=== PATIENT | female | born 1955 | race Caucasian/White ===

== ENCOUNTER 2016-07-25 09:20 | Emergency (ER) | payer MEDICARE, BC | END 2016-07-25 12:05 | disposition home or self-care (01) | LOC: D.ER 09:20 | DX: J01.90 Acute sinusitis, unspecified (principal); F41.9 Anxiety disorder, unspecified; J44.9 Chronic obstructive pulmonary disease, unspecified; I10 Essential (primary) hypertension; F17.200 Nicotine dependence, unspecified, uncomplicated ==

== ENCOUNTER 2018-01-26 08:56 | Emergency (ER) | payer MEDICARE, MEDICAID ==
[~2018-01-26] VITALS: Ht 162.6 cm; Wt 113.6 kg
[2018-01-26 08:59] VITALS: Ht 162.6 cm; Wt 113.6 kg
[2018-01-26] MEDS ORDERED: ZESTRIL20 MG PO (09:03)
[2018-01-26] MEDS ORDERED: NEURONTIN600 MG PO (09:03)
[2018-01-26] MEDS ORDERED: TRAZODONE HCL150 MG PO (09:04)
[2018-01-26] MEDS ORDERED: LEVAQUIN500 MG PO (09:45)
[2018-01-26] MEDS ORDERED: MUCINEX600 MG PO (09:45)
[2018-01-26] MEDS ORDERED: PROAIR HFA8.5 GM INH (09:45)
[2018-01-26 10:03] LABS: BASOPHILS 0.6 % (0-2); HEMATOCRIT 42.7 % (36.0-48.0); HEMOGLOBIN 14.9 g/dL (12-16); IMMATURE GRANULOCYTES 0.6 % (0-5); LYMPHOCYTES 33.4 % (15-50); MCH 31.2 pg (26.0-34.0); MCHC 34.9 g/dL (31.0-37.0); MCV 89.5 fL (80.0-100.0); MEAN PLATELET VOLUME 10.6 fL (7.4-10.4); MONOCYTES 4.6 % (2-11); NEUTROPHILS 57.8 % (40-80); PLATELET COUNT 134 10x3/uL (130-400); RBC 4.77 10x6/uL (4.00-5.40); RDW 12.5 % (11.5-14.5); WBC 6.7 10x3/uL (4.8-10.8)
[2018-01-26 10:04] LABS: ALBUMIN 3.3 g/dL (3.4-5.0); ANION GAP 13.5 mmol/L (8-16); BILIRUBIN - TOTAL 0.65 mg/dL (0.2-1.3); CARBON DIOXIDE 25.5 mmol/L (21.0-32.0); CREATININE - SERUM 1.3 mg/dL (0.6-1.3); PROTEIN - SERUM 8.7 g/dL (6.4-8.2)
[2018-01-26] MEDS ORDERED: PRINIVIL20 MG PO (10:20)
[2018-01-26 10:56] VITALS: BP 142/78
== END 2018-01-26 10:58 | disposition home or self-care (01) ==
LOC: D.ER 08:56
PROVIDERS: Emergency Medicine
DX: J20.9 Acute bronchitis, unspecified (principal); R50.9 Fever, unspecified; I10 Essential (primary) hypertension; J44.9 Chronic obstructive pulmonary disease, unspecified

== ENCOUNTER 2018-02-11 18:05 | Emergency (ER) | payer MEDICARE ==
[~2018-02-11] VITALS: Ht 162.6 cm; Wt 117.7 kg
[~2018-02-11 18:05] MED LIST: LEVAQUIN500 MG PO; MUCINEX600 MG PO; NEURONTIN600 MG PO; PRINIVIL20 MG PO; PROAIR HFA8.5 GM INH; TRAZODONE HCL150 MG PO; ZESTRIL20 MG PO
[2018-02-11 18:13] VITALS: Ht 162.6 cm; Wt 117.7 kg
[2018-02-11 18:55] LABS: BASOPHILS 0.6 % (0-2); EOSINOPHILS 3.9 % (0-7); HEMATOCRIT 42.2 % (36.0-48.0); HEMOGLOBIN 14.6 g/dL (12-16); IMMATURE GRANULOCYTES 0.4 % (0-5); LYMPHOCYTES 44.4 % (15-50); MCHC 34.6 g/dL (31.0-37.0); MCV 89.6 fL (80.0-100.0); MEAN PLATELET VOLUME 10.7 fL (7.4-10.4); MONOCYTES 8.6 % (2-11); NEUTROPHILS 42.1 % (40-80); PLATELET COUNT 133 10x3/uL (130-400); RBC 4.71 10x6/uL (4.00-5.40); RDW 12.2 % (11.5-14.5); WBC 6.7 10x3/uL (4.8-10.8)
[2018-02-11 18:56] LABS: APPEARANCE CLEAR (CLEAR); BILIRUBIN NEGATIVE (NEGATIVE); COLOR YELLOW (YELLOW); GLUCOSE NEGATIVE (NEGATIVE); KETONE NEGATIVE (NEGATIVE); NITRITE NEGATIVE (NEGATIVE); PROTEIN NEGATIVE (NEGATIVE); SPECIFIC GRAVITY 1.005 (1.005-1.020); UROBILINOGEN NORMAL (NORMAL)
[2018-02-11 18:58] LABS: BACTERIA MANY /hpf (NONE SEEN); EPITHELIAL CELLS 0-5 /hpf (0-5)
[2018-02-11 19:19] LABS: ANION GAP 10.6 mmol/L (8-16); BILIRUBIN - TOTAL 0.47 mg/dL (0.2-1.3); CALCIUM 9.8 mg/dL (8.5-10.1); CARBON DIOXIDE 30.7 mmol/L (21.0-32.0); CREATININE - SERUM 1.5 mg/dL (0.6-1.3); POTASSIUM - SERUM 4.3 mmol/L (3.5-5.1)
[2018-02-11 19:22] LABS: PROTEIN - SERUM 3.4 g/dL (6.4-8.2)
[2018-02-11] MEDS ORDERED: ZOFRAN ODT4 MG/UDTAB PO ×2 (21:52→21:56)
[2018-02-11] MEDS ORDERED: MACROBID100 MG PO (21:53)
[2018-02-11 22:01] VITALS: BP 115/69
[2018-03-30 14:25] VITALS: Ht 162.6 cm; Wt 117.7 kg
== END 2018-02-11 22:20 | disposition home or self-care (01) ==
LOC: D.ER 18:05
PROVIDERS: Family Medicine
DX: N39.0 Urinary tract infection, site not specified (principal); R11.0 Nausea; I10 Essential (primary) hypertension; J44.9 Chronic obstructive pulmonary disease, unspecified; F17.200 Nicotine dependence, unspecified, uncomplicated

== ENCOUNTER 2018-03-11 10:02 | Emergency (ER) | payer MEDICARE ==
[~2018-03-11] VITALS: Ht 162.6 cm; Wt 127.3 kg
[~2018-03-11 10:02] MED LIST changes: +MACROBID100 MG PO; +ZOFRAN ODT4 MG/UDTAB PO
[2018-03-11 10:07] VITALS: Ht 162.6 cm; Wt 127.3 kg
[2018-03-11 10:28] LABS: BASOPHILS 0.6 % (0-2); EOSINOPHILS 0.9 % (0-7); HEMOGLOBIN 15.1 g/dL (12-16); IMMATURE GRANULOCYTES 0.4 % (0-5); LYMPHOCYTES 34.1 % (15-50); MCH 31.8 pg (26.0-34.0); MCHC 35.1 g/dL (31.0-37.0); MCV 90.5 fL (80.0-100.0); MEAN PLATELET VOLUME 10.8 fL (7.4-10.4); MONOCYTES 6.7 % (2-11); NEUTROPHILS 57.3 % (40-80); PLATELET COUNT 146 10x3/uL (130-400); RBC 4.75 10x6/uL (4.00-5.40); RDW 12.5 % (11.5-14.5)
[2018-03-11 10:40] LABS: ALBUMIN 3.4 g/dL (3.4-5.0); ANION GAP 11.8 mmol/L (8-16); BILIRUBIN - TOTAL 0.61 mg/dL (0.2-1.3); CALCIUM 8.8 mg/dL (8.5-10.1); CARBON DIOXIDE 25.8 mmol/L (21.0-32.0); CREATININE - SERUM 1.5 mg/dL (0.6-1.3); POTASSIUM - SERUM 4.6 mmol/L (3.5-5.1); PROTEIN - SERUM 8.6 g/dL (6.4-8.2)
[2018-03-11 11:21] LABS: APPEARANCE CLEAR (CLEAR); BILIRUBIN NEGATIVE (NEGATIVE); COLOR YELLOW (YELLOW); GLUCOSE NEGATIVE (NEGATIVE); KETONE NEGATIVE (NEGATIVE); NITRITE NEGATIVE (NEGATIVE); PROTEIN 1+ mg/dL (NEGATIVE); SPECIFIC GRAVITY 1.015 (1.005-1.020); UDS - AMPHET NEGATIVE QUAL (NEGATIVE); UDS - BARB NEGATIVE QUAL (NEGATIVE); UDS - BENZO NEGATIVE QUAL (NEGATIVE); UDS - COCAINE NEGATIVE QUAL (NEGATIVE); UDS - OPIATE POSITIVE QUAL (NEGATIVE); UDS - PCP NEGATIVE QUAL (NEGATIVE); UDS - THC POSITIVE QUAL (NEGATIVE); UROBILINOGEN NORMAL (NORMAL)
[2018-03-11 11:24] LABS: BACTERIA FEW /hpf (NONE SEEN); EPITHELIAL CELLS 0-5 /hpf (0-5); RED CELLS - URINE 0-5 /hpf (0-5); WHITE CELLS - URINE 0-5 /hpf (0-5)
[2018-03-11 15:35] VITALS: BP 138/75
[2018-03-30 14:25] VITALS: Ht 162.6 cm; Wt 127.3 kg
== END 2018-03-11 15:37 ==
LOC: D.ER 10:02
PROVIDERS: Emergency Medicine
DX: F31.64 Bipolar disorder, current episode mixed, severe, with psychotic features (principal)

== ENCOUNTER 2018-03-19 13:29 | Observation (INO) | payer MEDICARE ==
[~2018-03-19] VITALS: Ht 162.6 cm; Wt 126.0 kg
[2018-03-19] VITALS (10 sets, daily range): BP systolic 125–137; BP diastolic 76–93; BMI 47.8
--- NOTE | ~2018-03-19 | CN ---
PATIENT NAME:AMRIPOSA PADILLA MEDICAL RECORD: [id number] : 53 LOCATION:[facility].2305 ADMIT DATE: 03/19/18 ACCOUNT: [id number] CONSULTING PHYSICIAN: MIKALA PITTMAN MD REFERRING PHYSICIAN: TANJA KAUR MD DATE OF CONSULTATION: 03/20/2018 PSYCHIATRIC CONSULTATION IDENTIFYING DATA: The patient is 62 years old and she is admitted to the hospital on a voluntary basis. CHIEF COMPLAINT: Overdose. HISTORY OF PRESENT ILLNESS: The patient apparently came to the Emergency Room and told the Emergency Room doctor that she had tried to kill herself by taking 25 Haldol and 25 Ativan tablets. Apparently after being evaluated, she was found to be negative for benzodiazepines in her urine, but positive for opiates. She has no explanation for this. She says the Haldol and Ativan were prescribed to her by her psychiatrist at [facility]. She says that she did it with the full intent of killing herself. Apparently, there have been some behavioral issues with her where sometimes she appears to be malingering or pretending to be sedated when she actually is not. The nurse told me that she had been walking around in her room, interacting and talking appropriately, but then when the fuel cell repairer came to see her, she was unresponsive. It clearly sounds behavioral based on what I have seen, but she was awake, alert, and cooperative with me. She endorses numerous depressive symptoms, says she does want to , but denies that she would try to hurt herself right now. MENTAL STATUS EXAMINATION: The patient is awake, alert and oriented to person, place, time and situation. Her mood is depressed. Her affect is constricted. Thought processes are circumstantial. Memory, concentration, and abstraction abilities are impaired. She denies active current thoughts of harming herself. She denies any thoughts of harming others and she also denies psychotic symptoms. ASSESSMENT: Bipolar disorder, depressed. PLAN: The patient has a long history of mental illness and has been hospitalized numerous times. She says she has an allergy to both DEPAKOTE and LITHIUM, but I did explore what the problem was with either of those medications. She has been told by more than one outpatient psychiatrist and at least 1 inpatient psychiatrist that she is bipolar. I will take her at her word for that. It does appear accurate and she also has a history of increased goal directed activity, but currently she is clearly depressed and tearful. She endorses suicidal thoughts. She took medication. There are inconsistencies and conflicting evidence about what she took, but the intent was to hurt herself and she expressed that clearly to staff and she is clearly showing evidence of a severely depressed mood. It is my recommendation that once she is medically stabilized that she be transferred to inpatient psychiatric care. She says she prefers to go to [facility] here locally. I explained that that would be the first place we call, but it may not be possible. In either case, she still is agreeable to a voluntary hospitalization at this point. CONSULT REPORT [id number] MARIPOSA PADILLA TRANSINT:[id number] Voice Confirmation ID: [id number] DOCUMENT ID: [id number] MIKALA PITTMAN MD at 1234 CC: [id number] DICTATION DATE: 03/20/18 1415 MOBILE SECURITY SPECIALIST: 03/20/18 1430 DIS IN 03/20/18 [id number] [place] [address]
[2018-03-19 14:08] LABS: UDS - AMPHET NEGATIVE QUAL (NEGATIVE); UDS - BARB NEGATIVE QUAL (NEGATIVE); UDS - BENZO NEGATIVE QUAL (NEGATIVE); UDS - COCAINE NEGATIVE QUAL (NEGATIVE); UDS - OPIATE POSITIVE QUAL (NEGATIVE); UDS - PCP NEGATIVE QUAL (NEGATIVE); UDS - THC NEGATIVE QUAL (NEGATIVE)
[2018-03-19 14:13] LABS: ALKALINE PHOSPHATASE 109 U/L (46-116); ALT (SGPT) 54 U/L (10-68); BILIRUBIN - TOTAL 0.56 mg/dL (0.2-1.3); CALC OSMOLALITY 275 mosm/kg (275-300); CALCIUM 8.6 mg/dL (8.5-10.1); CHLORIDE - SERUM 102 mmol/L (98-107); CREATININE - SERUM 1.3 mg/dL (0.6-1.3); GLUCOSE 114 mg/dL (74-106); LIPASE 156 U/L (73-393); POTASSIUM - SERUM 4.1 mmol/L (3.5-5.1); PROTEIN - SERUM 7.8 g/dL (6.4-8.2); SODIUM 137 mmol/L (136-145); UREA NITROGEN 14 mg/dL (7-18); eGFR NON AFRICAN AMERICAN 44 mL/min (90-120)
[2018-03-19 14:14] LABS: C-REACTIVE PROTEIN < 0.2 mg/dL (0.0-0.9)
[2018-03-19 14:15] LABS: APPEARANCE HAZY (CLEAR); BACTERIA MANY /hpf (NONE SEEN); BILIRUBIN NEGATIVE (NEGATIVE); COLOR STRAW (YELLOW); EPITHELIAL CELLS 0-5 /hpf (0-5); GLUCOSE NEGATIVE (NEGATIVE); KETONE NEGATIVE (NEGATIVE); MUCUS <1+ /lpf (NONE SEEN); NITRITE POSITIVE (NEGATIVE); PROTEIN NEGATIVE (NEGATIVE); RED CELLS - URINE 0-5 /hpf (0-5); UROBILINOGEN NORMAL (NORMAL); WHITE CELLS - URINE 0-5 /hpf (0-5)
[2018-03-19 14:41] LABS: BASOPHILS 0.4 % (0-2); HEMATOCRIT 39.2 % (36.0-48.0); HEMOGLOBIN 13.4 g/dL (12-16); IMMATURE GRANULOCYTES 0.2 % (0-5); LYMPHOCYTES 35.5 % (15-50); MCH 30.7 pg (26.0-34.0); MCHC 34.2 g/dL (31.0-37.0); MCV 89.7 fL (80.0-100.0); MEAN PLATELET VOLUME 10.8 fL (7.4-10.4); MONOCYTES 7.1 % (2-11); NEUTROPHILS 53.8 % (40-80); PLATELET COUNT 122 10x3/uL (130-400); RBC 4.37 10x6/uL (4.00-5.40); RDW 12.5 % (11.5-14.5); WBC 5.6 10x3/uL (4.8-10.8)
[2018-03-20] VITALS (16 sets, daily range): BP systolic 107–163; BP diastolic 67–98; Ht 162.6 cm; Wt 126.0 kg
[2018-03-25 17:07] LABS: AEROBE ID Final report (()); RESULT 1 Escherichia coli (())
== END 2018-03-20 22:18 | disposition short-term general hospital (02) ==
LOC: D.ER 13:29 → D.EDHOLD 16:17 → D.ICU 16:17 → OBSVTIME 16:17 → D.ICU 16:19
PROVIDERS: Family Medicine
DX: T43.4X2A Poisoning by butyrophenone and thiothixene neuroleptics, intentional self-harm, initial encounter (principal); F31.9 Bipolar disorder, unspecified; G93.40 Encephalopathy, unspecified; J44.1 Chronic obstructive pulmonary disease with (acute) exacerbation; E66.01 Morbid (severe) obesity due to excess calories; Z68.42 Body mass index [BMI] 45.0-49.9, adult

== ENCOUNTER 2018-03-26 13:25 | Emergency (ER) | payer MEDICARE ==
[2018-03-20 11:13] VITALS: BMI 47.7
== END 2018-03-26 13:30 | disposition left against medical advice (07) ==
LOC: D.ER 13:25
DX: R53.81 Other malaise (principal)

== ENCOUNTER 2018-03-30 14:23 | Emergency (ER) | payer MEDICARE ==
[~2018-03-30] VITALS: Ht 162.6 cm; Wt 131.8 kg
[2018-03-30 14:25] VITALS: Ht 162.6 cm; Wt 131.8 kg
[2018-03-30 15:07] LABS: BASOPHILS 0.6 % (0-2); EOSINOPHILS 2.6 % (0-7); HEMATOCRIT 40.6 % (36.0-48.0); HEMOGLOBIN 14.3 g/dL (12-16); IMMATURE GRANULOCYTES 0.2 % (0-5); LYMPHOCYTES 40.4 % (15-50); MCH 31.3 pg (26.0-34.0); MCHC 35.2 g/dL (31.0-37.0); MCV 88.8 fL (80.0-100.0); MEAN PLATELET VOLUME 10.7 fL (7.4-10.4); MONOCYTES 7.7 % (2-11); NEUTROPHILS 48.5 % (40-80); PLATELET COUNT 108 10x3/uL (130-400); RBC 4.57 10x6/uL (4.00-5.40); RDW 12.6 % (11.5-14.5); WBC 5.1 10x3/uL (4.8-10.8)
[2018-03-30 15:30] LABS: ALBUMIN 3.1 g/dL (3.4-5.0); ANION GAP 14.7 mmol/L (8-16); BILIRUBIN - TOTAL 0.44 mg/dL (0.2-1.3); CALCIUM 9.7 mg/dL (8.5-10.1); CARBON DIOXIDE 23.4 mmol/L (21.0-32.0); CREATININE - SERUM 1.6 mg/dL (0.6-1.3); POTASSIUM - SERUM 4.1 mmol/L (3.5-5.1)
[2018-03-30] MEDS ORDERED: AUGMENTIN 875-11 TAB PO (16:44)
[2018-03-30 17:42] VITALS: BP 126/68
== END 2018-03-30 17:43 | disposition home or self-care (01) ==
LOC: D.ER 14:23
PROVIDERS: Family Medicine
DX: J01.90 Acute sinusitis, unspecified (principal); R04.2 Hemoptysis

== ENCOUNTER 2018-08-06 12:04 | Inpatient (IN) | payer MEDICARE ==
[~2018-08-06] VITALS: Ht 162.6 cm; Wt 127.0 kg
[2018-08-06] VITALS (7 sets, daily range): BP systolic 128–134; BP diastolic 65–87; BMI 48.1
[~2018-08-06 12:04] MED LIST changes: +AUGMENTIN 875-11 TAB PO
[2018-08-06 12:46] LABS: BASOPHILS 0.6 % (0-2); EOSINOPHILS 1.1 % (0-7); HEMATOCRIT 43.2 % (36.0-48.0); HEMOGLOBIN 15.5 g/dL (12-16); LYMPHOCYTES 31.5 % (15-50); MCH 31.6 pg (26.0-34.0); MCHC 35.9 g/dL (31.0-37.0); MEAN PLATELET VOLUME 11.5 fL (7.4-10.4); MONOCYTES 7.4 % (2-11); NEUTROPHILS 58.4 % (40-80); PLATELET COUNT 108 10x3/uL (130-400); RBC 4.91 10x6/uL (4.00-5.40); RDW 12.3 % (11.5-14.5); WBC 7.3 10x3/uL (4.8-10.8)
[2018-08-06 12:54] LABS: ALBUMIN 3.2 g/dL (3.4-5.0); ALKALINE PHOSPHATASE 113 U/L (46-116); ALT (SGPT) 56 U/L (10-68); AMYLASE - SERUM 117 U/L (25-115); BILIRUBIN - TOTAL 0.64 mg/dL (0.2-1.3); CALC OSMOLALITY 252 mosm/kg (275-300); CALCIUM 9.5 mg/dL (8.5-10.1); CARBON DIOXIDE 19.7 mmol/L (21.0-32.0); CHLORIDE - SERUM 94 mmol/L (98-107); CREATININE - SERUM 1.1 mg/dL (0.6-1.3); GLUCOSE 107 mg/dL (74-106); LIPASE 304 U/L (73-393); MAGNESIUM - SERUM 1.8 mg/dL (1.8-2.4); PROTEIN - SERUM 8.4 g/dL (6.4-8.2); SODIUM 127 mmol/L (136-145); TROPONIN-I < 0.017 ng/mL (0.000-0.060); UREA NITROGEN 6 mg/dL (7-18); eGFR NON AFRICAN AMERICAN 53 mL/min (90-120)
[2018-08-06 14:28] LABS: APPEARANCE SL CLDY (CLEAR); BACTERIA MANY /hpf (NONE SEEN); BILIRUBIN NEGATIVE (NEGATIVE); COLOR YELLOW (YELLOW); EPITHELIAL CELLS 0-5 /hpf (0-5); GLUCOSE NEGATIVE (NEGATIVE); KETONE NEGATIVE (NEGATIVE); NITRITE NEGATIVE (NEGATIVE); PROTEIN NEGATIVE (NEGATIVE); UROBILINOGEN NORMAL (NORMAL); WHITE CELLS - URINE 25-50 /hpf (0-5)
[2018-08-06 14:29] LABS: MUCUS <1+ /lpf (NONE SEEN)
--- NOTE | 2018-08-06 19:45 | NUR ---
PT RESTING IN BED ALERT AND ORIENTED, PT C/O ITCHING
[2018-08-06] MEDS ORDERED: ZESTRIL20 MG PO (20:45)
--- NOTE | 2018-08-06 22:00 | NUR ---
PT RESTING IN BED, NO DISTRESS NOTED, PT ADVISED THAT SHE WAS NEEDING HER NIGHT TIME MEDICINE
--- NOTE | 2018-08-06 23:25 | NUR ---
REC'D TO ROOM 2224 FROM ER DEPT PER W/C A 63 Y/O W/FE PER SERVICES DR. KAUR WITH UTI/VOMITING. SALINE LOCK PATENT LEFT HAND SITE CLEAR. ASSESSMENT DONE. SR UP X2 CALL LIGHT WITHINREACH.
--- NOTE | 2018-08-06 23:45 | NUR ---
NS HUNG ORDERED TO INFUSE AT 125CC'S/HR.
--- NOTE | 2018-08-06 23:48 | NUR ---
C/O PAIN IN ABOMEN. NO NAUSEA OR VOMITING NOTED. MORPHINE 4MG IVP SLOW GIVEN FOR PAIN CONTROL.PATIENT ASKING FOR FOOD INSTRUCTED PATIENT ON CLEAR LIQUID DIET.
[2018-08-07 01:32] VITALS: BP 174/92
--- NOTE | 2018-08-07 05:00 | NUR ---
C/O PAIN IN ABDOMEN MORPHINE 4MG IVP SLOWLY GIVEN FOR PAIN CONTROL.
[2018-08-07 05:23] VITALS: BP 109/55
[2018-08-07 06:10] LABS: BASOPHILS 0.3 % (0-2); EOSINOPHILS 2.1 % (0-7); HEMATOCRIT 35.9 % (36.0-48.0); HEMOGLOBIN 12.4 g/dL (12-16); IMMATURE GRANULOCYTES 0.6 % (0-5); LYMPHOCYTES 45.3 % (15-50); MCH 31.1 pg (26.0-34.0); MCHC 34.5 g/dL (31.0-37.0); MEAN PLATELET VOLUME 10.7 fL (7.4-10.4); MONOCYTES 7.3 % (2-11); NEUTROPHILS 44.4 % (40-80); RBC 3.99 10x6/uL (4.00-5.40); RDW 12.5 % (11.5-14.5); WBC 6.7 10x3/uL (4.8-10.8)
[2018-08-07 06:43] LABS: ALBUMIN 2.6 g/dL (3.4-5.0); ANION GAP 16.1 mmol/L (8-16); BILIRUBIN - TOTAL 0.53 mg/dL (0.2-1.3); CALCIUM 8.1 mg/dL (8.5-10.1); CARBON DIOXIDE 20.3 mmol/L (21.0-32.0); CREATININE - SERUM 1.2 mg/dL (0.6-1.3); POTASSIUM - SERUM 3.4 mmol/L (3.5-5.1); PROTEIN - SERUM 6.9 g/dL (6.4-8.2)
[2018-08-07 06:49] LABS: PLATELET COUNT 140 10x3/uL (130-400)
--- NOTE | 2018-08-07 07:57 | NUR ---
PT SITTING UP IN BED, STATED SHE DID NOT SLEEP VERY WELL LAST NIGHT, PT STATED SHE HOPES TO BE D/C TODAY, SPOKE TO PT AT LENGTH AND ADVISED HER WE NEEDED TO FIND OUT WHATS GOING ON AND MAKE HER BETTER BEFORE DC, ADVISED PT OF UA NEEDED AND PT STATED SHE IS UNABLE TO HIT THE CUP, ADVISED PT I PLACED HAT IN TOILET TO CATCH FOR HER. BED IN LOW POSITION, CL IN REACH, PT C/O BEING VERY THIRSTY AND DIDNT KNOW WHY. ASKED PT IF SHE IS DIABETIC AND SHE STATED SHE IS NOT BUT BOTH OF HER PARENTS ARE. CONTINUE WITH PLAN OF CARE
[2018-08-07 08:28] VITALS: BP 109/56
--- NOTE | 2018-08-07 11:17 | NUR ---
PT RESTING IN BED LYING ON RT SIDE, PT REQUESTED PAIN MEDICATION AFTER SHOWERA D WAS ADMINISTERED PRN PAIN MEDS, NO OTHER NEEDS VOICED, CONTINUE WITH PLAN OF CARE
--- NOTE | 2018-08-07 11:51 | NUR ---
PT STATED SHE HAS NOT VOMITED SINCE ADMISSION BUT SHE IS STILL NAUSEOUS, CONTINUE WITH PLAN OF CARE
[2018-08-07 11:53] VITALS: BP 112/62
[2018-08-07 14:13] VITALS: Ht 162.6 cm; Wt 127.0 kg
[2018-08-07 20:48] VITALS: BP 95/46
--- NOTE | 2018-08-08 01:47 | NUR ---
PATIENT PULLS OUT IV AND REFUSES TO HAVE IV RESITED AT THIS TIME.SITTING IN CHAIR AT BEDSIDE.
--- NOTE | 2018-08-08 04:00 | NUR ---
RESITED IV TO LEFT WRIST #22G X1 ATTEMPT RESUMED IV FLUIDS. C/O PAIN IN ABDOMEN MORPHINE 4 MG IVP GIVEN FOR PAIN CONTROL.
[2018-08-08 04:25] LABS: BASOPHILS 0.6 % (0-2); EOSINOPHILS 2.3 % (0-7); HEMATOCRIT 34.9 % (36.0-48.0); HEMOGLOBIN 11.9 g/dL (12-16); IMMATURE GRANULOCYTES 0.9 % (0-5); LYMPHOCYTES 32.8 % (15-50); MCH 30.9 pg (26.0-34.0); MCHC 34.1 g/dL (31.0-37.0); MCV 90.6 fL (80.0-100.0); MEAN PLATELET VOLUME 10.6 fL (7.4-10.4); MONOCYTES 7.2 % (2-11); NEUTROPHILS 56.2 % (40-80); PLATELET COUNT 141 10x3/uL (130-400); RBC 3.85 10x6/uL (4.00-5.40); RDW 12.3 % (11.5-14.5); WBC 6.4 10x3/uL (4.8-10.8)
[2018-08-08 04:27] LABS: ANION GAP 11.3 mmol/L (8-16); CALCIUM 7.6 mg/dL (8.5-10.1); CARBON DIOXIDE 21.2 mmol/L (21.0-32.0); CREATININE - SERUM 1.5 mg/dL (0.6-1.3); MAGNESIUM - SERUM 1.4 mg/dL (1.8-2.4)
--- NOTE | 2018-08-08 04:29 | NUR ---
PATIENT SEEN UNTAPING IV LINE. OFFERED TO WRAP IV. PATIENT YELLED AND SAID NO. AND PROCEDED TO PULL OUT IV WITH TIP INTACT.
--- NOTE | 2018-08-08 04:31 | NUR ---
EXPLAINED TO PATIENT WITHOUT IV SHE WOULD BE UNABLE TO RECEIVE HER MEDICATIONS.
[2018-08-08 04:33] VITALS: BP 83/40
[2018-08-08 04:34] LABS: POTASSIUM - SERUM 4.5 mmol/L (3.5-5.1)
--- NOTE | 2018-08-08 08:10 | NUR ---
PATIENT SITTING ON SIDE OF BED VERY ANXIOUS AND STATING THAT SHE NEEDS DISCHARGED NOW BECAUSE SHE HAS APPOINTMENT IN [place] AT 3PM FOR PAIN MEDICATIONS. NOTIFIED JANIYA WOLF OF PATIENTS REQUEST.
[2018-08-08 08:39] VITALS: BP 102/39
--- NOTE | 2018-08-08 09:01 | NUR ---
PATIENT REQUEST TO SIGN AMA BECAUSE SHE IS READY TO LEAVE HOSPITAL NOW TO DO THINGS BEFORE THIS AFTERNOON APPOINTMENT IN [place]. PATIENT WAS EXPLAINED THAT SHE WOULD BE RESOPONSIBLE FOR HOSPITAL BILL AND THAT SHE NEEDS CONTINUED ANTIBIOTICS, THAT PAIN DR WOULD BE NOTIFIED THAT SHE IS INPATIENT IN HOSPITAL TO HAVE APPOINTMENT RESCHEDULED. PATIENT VOICED UNDERSTAND AND STILL REQUEST TO LEAVE AMA. AMA PAPER SIGNED BY PATIENT.
--- NOTE | 2018-08-14 06:53 | MORECARE ---
CASE MANAGEMENT DISCHARGE SUMMARY PATIENT: MARIPOSA PADILLA UNIT: [id number] ADM DATE: 08/07/18 AGE: 63 : 53 SEX: F ROOM/BED: D.2224 AUTHOR: DEREK STERLING PHYSICIAN: REFERRING PHYSICIAN: TANJA KAUR MD DATE OF SERVICE: 08/14/18 Discharge Plan Patient Name: MARIPOSA PADILLA [facility] [facility] 1955 Planned Disposition: Anticipated Discharge Date: Discharge Date: 08/08/2018 Expected LOS: 0 Initial Reviewer: [email or web address] Initial Review Date: 08/14/2018 Generated: 08/14/18 7:53 am Patient Name: MARIPOSA PADILLA Page [id number] at 0653 All edits/amendments must be made on the electronic document DICTATION DATE: 08/14/1853 FISH HATCHERY INSPECTOR: LUIS M 08/14/18 0653 RPT#: [id number] DC DATE:08/08/18 STATUS: DIS IN [facility] [address] [place] [address] END OF REPORT
== END 2018-08-08 09:11 | disposition left against medical advice (07) | DRG 690 ==
LOC: D.ER 12:04 → D.EDHOLD 15:37 → OBSVTIME 15:39 → D.MS 22:56
PROVIDERS: Family Medicine; ADMIT Internal Medicine Nephrology
DX: N39.0 Urinary tract infection, site not specified (principal); Z68.42 Body mass index [BMI] 45.0-49.9, adult; E87.1 Hypo-osmolality and hyponatremia; K29.70 Gastritis, unspecified, without bleeding; R11.2 Nausea with vomiting, unspecified; J44.9 Chronic obstructive pulmonary disease, unspecified; F31.9 Bipolar disorder, unspecified; E66.01 Morbid (severe) obesity due to excess calories; D64.9 Anemia, unspecified; E87.6 Hypokalemia; K74.60 Unspecified cirrhosis of liver

== ENCOUNTER 2018-09-17 15:48 | Emergency (ER) | payer MEDICARE ==
[~2018-09-17] VITALS: Ht 162.6 cm; Wt 136.4 kg
[2018-09-17 16:03] VITALS: Ht 162.6 cm; Wt 136.4 kg
[2018-09-17 17:10] LABS: BASOPHILS 0.4 % (0-2); EOSINOPHILS 3.1 % (0-7); HEMATOCRIT 37.1 % (36.0-48.0); HEMOGLOBIN 12.7 g/dL (12-16); IMMATURE GRANULOCYTES 0.4 % (0-5); LYMPHOCYTES 37.6 % (15-50); MCH 30.8 pg (26.0-34.0); MCHC 34.2 g/dL (31.0-37.0); MEAN PLATELET VOLUME 11.3 fL (7.4-10.4); MONOCYTES 8.3 % (2-11); NEUTROPHILS 50.2 % (40-80); RBC 4.12 10x6/uL (4.00-5.40); RDW 11.9 % (11.5-14.5); WBC 4.8 10x3/uL (4.8-10.8)
[2018-09-17 17:15] LABS: ALBUMIN 2.8 g/dL (3.4-5.0); ANION GAP 9.2 mmol/L (8-16); BILIRUBIN - TOTAL 0.35 mg/dL (0.2-1.3); CALCIUM 8.2 mg/dL (8.5-10.1); CARBON DIOXIDE 25.3 mmol/L (21.0-32.0); CREATININE - SERUM 1.4 mg/dL (0.6-1.3); POTASSIUM - SERUM 3.5 mmol/L (3.5-5.1); PROTEIN - SERUM 7.3 g/dL (6.4-8.2)
[2018-09-17 17:18] LABS: PLATELET COUNT 109 10x3/uL (130-400)
[2018-09-17 18:06] LABS: APPEARANCE CLEAR (CLEAR); BILIRUBIN NEGATIVE (NEGATIVE); COLOR YELLOW (YELLOW); GLUCOSE NEGATIVE (NEGATIVE); KETONE NEGATIVE (NEGATIVE); NITRITE NEGATIVE (NEGATIVE); PROTEIN NEGATIVE (NEGATIVE); UROBILINOGEN NORMAL (NORMAL)
[2018-09-17 18:43] LABS: BACTERIA FEW /hpf (NONE SEEN); EPITHELIAL CELLS 0-5 /hpf (0-5); RED CELLS - URINE OCC /hpf (0-5); WHITE CELLS - URINE 0-5 /hpf (0-5)
[2018-09-18] VITALS: BP 122/74
== END 2018-09-18 03:20 | disposition home or self-care (01) ==
LOC: D.ER 15:48
PROVIDERS: Family Medicine
DX: E86.0 Dehydration (principal)